=== PATIENT | male | born 2000 | race Caucasian/White ===

== ENCOUNTER 2020-05-25 22:46 | Emergency (ER) | payer BC ==
[~2020-05-25] VITALS: Ht 195.5 cm; Wt 95.2 kg
--- NOTE | 2020-05-25 23:20 | ED General ---
General Chief Complaint: Oral/Throat Problems Stated Complaint: SOB / CONGESTION / COUGH Nursing Triage Note: Pt ambulatory into ER with complaint of SOA, and Headache. Pt has no obvious distress. RR of 16, o2 sats of 99%. Pt states that this started last night before bed. Pt states that he has a sore throat as well. Pt states that his sinuses are draining. Pt denies being around anyone sick. Nursing Sepsis Screen: No Definite Risk Source of Information: Patient History of Present Illness Date Seen by Provider: May 25, 2020 Time Seen by Provider: 23:00 Initial Comments Patient is a 20-year-old male who presents to the emergency department today with a chief complaint of mild shortness of breath, mild sore throat. Patient states that he started getting symptoms approximately 24 hours ago. He is concerned about Covid. Denies any productive cough states he only has a dry cough. Denies any loss of taste or smell. No congestion or rhinorrhea. No abdominal pain, nausea vomiting other GI or symptoms. All other review of systems reviewed and negative except as stated above. Timing/Duration: 24 Hours Severity: Mild Associated Systoms: Denies Symptoms Allergies and Home Medications Patient Home Medication List Home Medication List Reviewed: Yes Review of Systems Review of Systems Constitutional: see HPI EENTM: throat pain (mild) Respiratory: cough (dry) Cardiovascular: no symptoms reported Gastrointestinal: no symptoms reported Genitourinary: no symptoms reported Musculoskeletal: no symptoms reported Skin: no symptoms reported All Other Systems Reviewed Negative Unless Noted: Yes Past Dnooxfk-[id number]-Uepjkq Hx Patient Social History Alcohol Use: Denies Use 2nd Hand Smoke Exposure: No Recent Infectious Disease Expo: No Recent Hopitalizations: No Immunizations Up To Date Tetanus Booster (TDap): Less than 5yrs PED Vaccines UTD: Yes Seasonal Allergies Seasonal Allergies: Yes Past Medical History Surgeries: No Respiratory: No Cardiac: No Neurological: No Genitourinary: No Gastrointestinal: No Musculoskeletal: No Endocrine: No HEENT: No Cancer: No Psychosocial: No Integumentary: No Blood Disorders: No Physical Exam Vital Signs Vital Signs - First Documented 05/25/20 22:53 Temp 36.3 Pulse 60 Resp 16 B/P (MAP) 139/85 (103) Pulse Ox 99 O2 Delivery Room Air Capillary Refill : Less Than 3 Seconds Height, Weight, BMI Height: '" Weight: lbs. oz. kg; 24.00 BMI Method: General Appearance: No Apparent Distress, WD/WN Eyes: Bilateral Eye Normal Inspection, Bilateral Eye PERRL, Bilateral Eye EOMI HEENT: PERRL/EOMI, TMs Normal, Normal ENT Inspection, Pharynx Normal (very minimal erythema) Neck: Full Range of Motion, Normal Inspection, Non Tender, Supple Respiratory: Lungs Clear (oxygen saturations 99% on room air), Normal Breath Sounds, No Accessory Muscle Use, No Respiratory Distress Cardiovascular: Regular Rate, Rhythm Gastrointestinal: Non Tender, Soft Extremity: Normal Inspection, Normal Range of Motion, Non Tender Neurologic/Psychiatric: Alert, Oriented x3, No Motor/Sensory Deficits, Normal Mood/Affect Skin: Normal Color, Warm/Dry Progress/Results/Core Measures Suspected Sepsis Recent Fever Within 48 Hours: No Infection Criteria Present: None New/Unexplained Altered Menta: No Sepsis Screen: No Definite Risk SIRS Temperature: Pulse: 60 Respiratory Rate: 16 Blood Pressure 139 /85 Mean: 103 Results/Orders Lab Results Laboratory Tests Test 05/25/20 23:12 Range/Units Coronavirus 2019 ([facility]BAR[facility]) Not Detected Not Detecte My Orders Orders - LUISA AYALA MD Covid 19 Inhouse Test (05/25/20 23:11) Vital Signs/I&O 05/25/20 22:53 Temp 36.3 Pulse 60 Resp 16 B/P (MAP) 139/85 (103) Pulse Ox 99 O2 Delivery Room Air Capillary Refill : Less Than 3 Seconds Blood Pressure Mean: 103 Departure Impression Primary Impression: Viral syndrome Disposition: 01 HOME, SELF-CARE Condition: Stable Departure-Patient Inst. Decision time for Depature: 23:20 Referrals: [facility] [place],LOCAL PHYSICIAN (PCP) Primary Care Physician Patient Instructions: Sore Throat in Adults Add. Discharge Instructions: Drink plenty of fluids to stay well-hydrated. Take [id number] Tylenol or ibuprofen as needed for discomfort/sore throat pain. Return to the emergency department for any increased or worsening symptoms as w ell as fever, worsening shortness of breath or cough or other emergent concerns. LUISA AYALA MD May 25, 2020 23:20
[2020-05-26 00:07] VITALS: BP 123/67
== END 2020-05-26 00:07 | disposition home or self-care (01) ==
LOC: ER 22:50
DX: B34.9 Viral infection, unspecified (principal); Z20.822 Contact with and (suspected) exposure to COVID-19
CPT/HCPCS: 99282; U0002; 87635